=== PATIENT | female | born 2000 | race Caucasian/White ===

== ENCOUNTER 2023-06-26 15:49 | Outpatient (OUT) | payer OTHER, SELFPAY ==
[2023-06-26 16:22] LABS: Basophils Absolute Auto 0.1 10^3/uL (0.0-0.1); Basophils Percent Auto 0.6 % (0.2-2.0); Eosinophils Absolute Auto 0.1 10^3/uL (0.0-0.7); Hematocrit 40.3 % (36.0-48.0); Immature Granulocytes Abs Auto 0.02 10^3/uL (0.00-0.03); Immature Granulocytes Pct Auto 0.2 % (0.0-0.5); Lymphocytes Absolute Auto 3.4 10^3/uL (1.2-3.8); Lymphocytes Percent Auto 38.7 % (20.5-60.0); Mean Corpuscular HGB Conc 32.3 g/dL (29.9-35.2); Mean Corpuscular Hemoglobin 29.7 pg (26.7-34.0); Mean Corpuscular Volume 92.2 fL (81.0-99.0); Mean Platelet Volume 9.6 fL (9.5-13.5); Monocytes Absolute Auto 0.5 10^3/uL (0.3-0.8); Monocytes Percent Auto 5.8 % (1.7-12.0); Neutrophils Absolute Auto 4.7 10^3/uL (1.4-6.5); Neutrophils Percent Auto 53.7 % (43.0-75.0); Platelet Count 297 10^3/uL (150-450); Red Blood Count 4.37 10^6/uL (4.20-5.40); Red Cell Distribution Width 12.3 % (11.0-15.0); White Blood Count 8.8 10^3/uL (4.0-11.0)
[2023-06-26 17:16] LABS: Alanine Aminotransferase 24 U/L (14-59); Albumin Globulin Ratio 1.1; Albumin Level 4.2 g/dL (3.4-5.0); Alkaline Phosphatase 58 U/L (46-116); Anion Gap 13.3; Aspartate Amino Transferase 25 U/L (15-37); BUN Creatinine Ratio 24.1; Bilirubin Total 0.6 mg/dL (0.2-1.0); Calcium 9.5 mg/dL (8.5-10.1); Carbon Dioxide 29.2 mmol/L (21.0-32.0); Chloride 102 mmol/L (98-107); Estimated GFR (African America >60 (>=60); Estimated GFR (Non-African Ame >60 (>=60); Globulin 3.9 g/dL; Glucose 91 mg/dL (74-106); Potassium 3.5 mmol/L (3.5-5.1); Sodium 141 mmol/L (136-145); Thyroid Stimulating Hormone 1.268 uIU/mL (0.358-3.740); Total Protein 8.1 g/dL (6.4-8.2)
[2023-06-26 17:39] LABS: C Reactive Protein <0.50 mg/dL (<=0.50)
[2023-06-28 08:08] LABS: Thyroid Peroxidase (TPO) Ab <9 IU/mL (0-34)
[2023-06-28 11:07] LABS: Lyme Total Antibody CIA Negative (Negative)
[2023-06-29 17:11] LABS: EBV Ab VCA, IgM <36.0 U/mL (0.0-35.9); EBV Nuclear Antigen Ab, IgG <18.0 U/mL (0.0-17.9)
== END 2023-06-26 15:50 | disposition home or self-care (01) ==
LOC: LAB 15:54
DX: R59.1 Generalized enlarged lymph nodes (principal); R53.83 Other fatigue
CPT/HCPCS: 36415; 80053; 84443; 85025; 86140; 86376; 86618